=== PATIENT | male | born 1980 | race African-American/Black ===

== ENCOUNTER 2019-08-30 09:39 | Emergency (ER) | payer OTHER ==
[~2019-08-30] VITALS: Ht 188 cm; Wt 102.0 kg
--- NOTE | 2019-08-30 10:00 | PHYS DOC ---
Past History Past Medical History: No Pertinent History Past Surgical History: No Surgical History Smoking: Cigarettes Alcohol Use: None Drug Use: None General Adult EDM: Chief Complaint: ALTERED MENTAL STATUS HPI: HPI: Patient is a 39 year old male who presents for evaluation of altered mental status. Patient was brought in by EMS after they were called to the [facility]. [facility] There was history given that he may have had a fall and injured his head but patient denies a recent fall. Either way he seems sleepy and slightly slurs his speech. There is also history that he may have consumed some recent alcohol which he adamantly denied. Furthermore patient denied any drug use. There is no visible signs of injury or trauma. Patient states that he just has not been feeling well lately. Review of Systems: Review of Systems: Constitutional: Denies fever or chills Eyes: Denies change in visual acuity HENT: Denies nasal congestion or sore throat Respiratory: Denies cough or shortness of breath Cardiovascular: Denies chest pain or edema GI: Denies abdominal pain, nausea, vomiting, bloody stools or diarrhea : Denies dysuria Musculoskeletal: Denies back pain or joint pain Integument: Denies rash Neurologic: Denies headache, focal weakness or sensory changes Endocrine: Denies polyuria or polydipsia Lymphatic: Denies swollen glands Psychiatric: Denies depression or anxiety Heart Score: Risk Factors: Risk Factors: DM, Current or recent (<one month) smoker, HTN, HLP, family history of CAD, obesity. Risk Scores: Score 0 - 3: 2.5% MACE over next 6 weeks - Discharge Home Score 4 - 6: 20.3% MACE over next 6 weeks - Admit for Clinical Observation Score 7 - 10: 72.7% MACE over next 6 weeks - Early Invasive Strategies Physical Exam: PE: Constitutional: Well developed, well nourished, mild acute distress, non-toxic appearance. [] HENT: Normocephalic, atraumatic, bilateral external ears normal, oropharynx moist, no oral exudates, nose normal. [] Eyes: PERRL, EOMI, conjunctiva normal, no discharge. [] Neck: Normal range of motion, no tenderness, supple, no stridor. [] Cardiovascular:Heart rate regular rhythm, no murmur [] Lungs & Thorax: Bilateral breath sounds clear to auscultation [] Abdomen: Bowel sounds normal, soft, no tenderness, no masses, no pulsatile masses. [] Skin: Warm, dry, no erythema, no rash. [] Back: No tenderness. [] Extremities: No tenderness, no cyanosis, no clubbing, ROM intact, no edema. [] Neurologic: Alert and oriented, normal motor function, normal sensory function, no focal deficits noted. [] Psychologic: flat Affect normal, judgement normal, mood abnormal. [] EKG: EKG: EKG normal sinus rhythm, rate 74, slight rightward axis, otherwise unremarkable EKG, QTC corrected is normal, no wide QRS read at 0956[] Radiology/Procedures: Radiology/Procedures: [place] [address] IMAGING REPORT Signed PATIENT: SANDIP POMPA ACCOUNT: [id number] : 1980 LOCATION: ER AGE: 39 SEX: M EXAM STATUS: REG ER ORD. PHYSICIAN: SHMUEL VELEZ DO REASON: confusion, fall PROCEDURE: CT HEAD AND CERVICAL SPINE WO CT HEAD AND CERVICAL SPINE WO History: Reason: confusion, fall / Spl. Instructions: / History: Pain. Comparison: None. Technique: Noncontrast CT imaging was performed of the head and cervical spine. Coronal and sagittal reconstructions were performed. Exposure: One or more of the following individualized dose reduction techniques were utilized for this examination: 1. Automated exposure control 2. Adjustment of the mA and/or kV according to patient size 3. Use of iterative reconstruction technique. Findings: Head CT: No intracranial hemorrhage. No mass effect. No hydrocephalus. Extra-axial spaces are unremarkable. Imaged orbits are unremarkable. Right maxillary mucous retention cyst or polyp. Mastoid air cells are clear. No acute calvarial fracture. Cervical spine CT: Normal vertebral body height and alignment. No fracture. Mild degenerative disc changes. No high-grade canal or neuroforaminal narrowing. Small biapical blebs. Impression: Head CT: 1. No acute intracranial abnormality. Cervical spine CT: 1. No acute fracture or subluxation of the cervical spine. Electronically signed by: Joshua Spears DO (08/30/2019 10:22 AM) [id number] DICTATED AND SIGNED BY: JOSHUA SPEARS DO DATE: 08/30/19 1022 CC: PCP,NO; SHMUEL VELEZ DO ~ [] Impressions: [address], [place] [address] IMAGING REPORT Signed PATIENT: SANDIP POMPA ACCOUNT: [id number] : 1980 LOCATION: ER AGE: 39 SEX: M EXAM STATUS: PRE ER ORD. PHYSICIAN: SHMUEL VELEZ DO REASON: short of air, confusion PROCEDURE: PORTABLE CHEST 1V PORTABLE CHEST 1V History: Reason: short of air, confusion / Spl. Instructions: / History: Comparison: None. Findings: No consolidation or pleural effusion. Normal heart size. No pneumothorax. Impression: 1. No acute cardiopulmonary process. Electronically signed by: Joshua Spears DO (08/30/2019 10:11 AM) [id number] DICTATED AND SIGNED BY: JOSHUA SPEARS DO DATE: 08/30/19 1011 CC: SHMUEL VELEZ DO ~ Course & Med Decision Making: Course & Med Decision Making Pertinent Labs and Imaging studies reviewed. (See chart for details) [] Dragon Disclaimer: Dragon Disclaimer: This electronic medical record was generated, in whole or in part, using a voice recognition dictation system. 1320 stable, patient reassessed multiple times. He is now awake alert and appropriate with no focal deficits or lateralizing signs. Cause of his early confusion is unclear. Clearly denies any street drug use or anything else that could have made him confused. He is medically discharged and ready to return to the [facility]. Patient demonstrates a steady gait Departure Departure: Impression: Primary Impression: Confusion Additional Impression: Encounter for medical screening examination Disposition: HOME/RESIDENCE PRIOR TO ADM Condition: STABLE Referrals: CAMERON BENJAMIN MD Patient Instructions: Confusion, Weakness, [id number] Additional Instructions: Drink plenty fluids, rest, because of your earlier confusion is unclear but CAT scan of your head, blood work and urinalysis and toxicology screens were all unremarkable Justification of Admission: Justification of Admission: Justification of Admission Dx: N/A SHMUEL VELEZ DO Aug 30, 2019 10:00
--- NOTE | 2019-08-30 10:02 | EKG ---
[address] [address] Test Date: 2019-08-30 Test Time: 09:54:12 Pat Name: SANDIP POMPA Department: Room: Gender: M [employer]: : 1980 Requested By: SHMUEL VELEZ Order Number: [id number] Reading MD: Measurements Intervals [place] Rate: 74 P: 64 CO: 160 QRS: 86 QRSD: 86 T: 45 QT: 368 QTc: 413 Interpretive Statements SINUS RHYTHM OTHERWISE NORMAL ECG RI6.02 No previous ECG available for comparison
--- NOTE | 2019-08-30 10:14 | RAD ---
PORTABLE CHEST 1V History: Reason: short of air, confusion / Spl. Instructions: / History: Comparison: None. Findings: No consolidation or pleural effusion. Normal heart size. No pneumothorax. Impression: 1. No acute cardiopulmonary process. Electronically signed by: Joshua Spears DO (08/30/2019 10:11 AM) [id number]
[2019-08-30 10:20] LABS: BASO # 0.1 x10^3/uL (0.0-0.2); BASO % 1 % (0-3); EOS # 0.3 x10^3/uL (0.0-0.7); EOS % 4 % (0-3); HEMATOCRIT 40.5 % (39.0-53.0); HEMOGLOBIN 13.6 g/dL (13.0-17.5); LYMPH # 1.3 x10^3/uL (1.0-4.8); LYMPH % 18 % (24-48); MEAN CORPUSCULAR HEMOGLOBIN 31 pg (25-35); MEAN CORPUSCULAR HGB CONC 34 g/dL (31-37); MEAN CORPUSCULAR VOLUME 92 fL (79-100); MONO # 0.7 x10^3/uL (0.0-1.1); MONO % 10 % (0-9); NEUT % 67 % (31-73); PLATELET COUNT 196 x10^3/uL (140-400); RED BLOOD COUNT 4.41 x10^6/uL (4.30-5.70); RED CELL DISTRIBUTION WIDTH 12.2 % (11.5-14.5); WHITE BLOOD COUNT 7.5 x10^3/uL (4.0-11.0)
--- NOTE | 2019-08-30 10:25 | RAD ---
CT HEAD AND CERVICAL SPINE WO History: Reason: confusion, fall / Spl. Instructions: / History: Pain. Comparison: None. Technique: Noncontrast CT imaging was performed of the head and cervical spine. Coronal and sagittal reconstructions were performed. Exposure: One or more of the following individualized dose reduction techniques were utilized for this examination: 1. Automated exposure control 2. Adjustment of the mA and/or kV according to patient size 3. Use of iterative reconstruction technique. Findings: Head CT: No intracranial hemorrhage. No mass effect. No hydrocephalus. Extra-axial spaces are unremarkable. Imaged orbits are unremarkable. Right maxillary mucous retention cyst or polyp. Mastoid air cells are clear. No acute calvarial fracture. Cervical spine CT: Normal vertebral body height and alignment. No fracture. Mild degenerative disc changes. No high-grade canal or neuroforaminal narrowing. Small biapical blebs. Impression: Head CT: 1. No acute intracranial abnormality. Cervical spine CT: 1. No acute fracture or subluxation of the cervical spine. Electronically signed by: Joshua Spears DO (08/30/2019 10:22 AM) [id number]
[2019-08-30 10:29] LABS: CALCIUM 8.7 mg/dL (8.5-10.1); CREATININE 1.7 mg/dL (0.7-1.3); GFR 45.3; POTASSIUM 3.9 mmol/L (3.5-5.1)
[2019-08-30 10:35] LABS: ALBUMIN 3.2 g/dL (3.4-5.0); ALBUMIN/GLOBULIN RATIO 0.9 (1.0-1.7); TOTAL BILIRUBIN 0.4 mg/dL (0.2-1.0); TOTAL PROTEIN 6.9 g/dL (6.4-8.2)
[2019-08-30 10:37] LABS: ACETAMIN < 2.0 mcg/mL (10-30); ETHANOL < 10 mg/dL (0-10)
[2019-08-30] MEDS ORDERED: ACETAMINOPHEN 500 MG TABLET PO ONE (11:45)
[2019-08-30 12:56] LABS: BARBITURATES NEG (NEG); BENZODIAZEPINES NEG (NEG); CANNABINOIDS NEG (NEG); COCAINE NEG (NEG); METHADONE NEG (NEG); OPIATES NEG (NEG); PHENCYCLIDINE NEG (NEG)
[2019-08-30 12:59] LABS: AMPHETAMINE/METHAMPHETAMINE NEG (NEG)
[2019-08-30 13:03] LABS: BACTERIA,URINE 0 /HPF (0-FEW); BILIRUBIN,URINE NEG (NEG); CLARITY,URINE CLEAR; COLOR,URINE YELLOW; GLUCOSE,URINE NEG (NEG); NITRITE,URINE NEG (NEG); RBC,URINE RARE /HPF (0-2); SQUAMOUS EPITHELIAL CELL,UR FEW /LPF; UROBILINOGEN,URINE 0.2 mg/dL (0.2 mg/dL); WBC,URINE OCC /HPF (0-4)
[2019-08-30 14:03] VITALS: BP 124/87
== END 2019-08-30 14:04 | disposition home or self-care (01) ==
LOC: ER 09:39
DX: R41.0 Disorientation, unspecified (principal); F17.210 Nicotine dependence, cigarettes, uncomplicated
CPT/HCPCS: 36415; 70450; 71045; 72125; 80053; 80307; 80329; 81001; 84484; 85025; 93005; 99285; G0480